=== PATIENT | male | born 1945 | race Caucasian/White ===

== ENCOUNTER 2016-06-20 20:15 | Emergency (ER) | payer OTHER ==
--- NOTE | 2016-06-20 20:23 | EDPHY ---
H & P HPI/ROS: HPI CHIEF COMPLAINT: Sore throat, right ear pain, chills, muscle aches, sinus congestion HISTORY OF PRESENT ILLNESS: This patient very pleasant 62-year-old male, significant past medical history for hypertension, hyperlipidemia, GERD, colon resection, presents to the emergency room for what he describes as flu-like illness. He tells me he has had a sore throat since Friday, right ear pain, chills, muscle aches and sinus congestion. His main complaint is sore throat. Also has a cough. Nonproductive. Denies chest pain or shortness of breath denies abdominal pain. Denies urinary symptoms. Patient tells me that he flew to visit his daughter here he is with his from [place] to live [address] [facility]. He tells me that he flew here on Friday. On the flight here he developed sore throat. Symptoms have continued. No recorded temperature at home but does feel chilled at times. Past Medical History: Hypertension, hyperlipidemia, GERD, colonic mass Past Surgical History: Colonic mass removal or colon resection Social History: Denies daily use of drugs alcohol tobacco products, lives in the [place], Family History: Noncontributory ROS REVIEW OF SYSTEMS: A comprehensive 10 point review of systems is otherwise negative aside from elements mentioned in the history of present illness. Exam Constitutional appears well nontoxic triage nursing summary reviewed, vital signs reviewed, awake/alert. Eyes normal conjunctivae and sclera, EOMI, PERRLA. HENT bilateral TM slight erythema to bilateral TMs no significant disc bulge or no significant fluid collection, nasal turbinates unremarkable, posterior oropharynx shows slight pink erythema no exudate or significant swelling, uvula midline, no signs of Micky's, no lymphadenopathy, normal inspection, atraumatic , moist mucus membranes, no epistaxis, neck supple/ no meningismus, no raccoon eyes. Patient does have tenderness palpation over the anterior frontal sinus. Congestion. Respiratory dry cough, otherwise clear to auscultation bilaterally, normal breath sounds, no respiratory distress, no wheezing. Cardiovascular rate normal, regular rhythm, no murmur, no edema, distal pulses normal. Gastrointestinal soft, non-tender, no rebound, no guarding, normal bowel sounds, no distension, no pulsatile mass. Genitourinary no CVA tenderness. Musculoskeletal no midline vertebral tenderness, full range of motion, no calf swelling, no tenderness of extremities, no meningismus, good pulses, neurovascularly intact. Skin pink, warm, & dry, no rash, skin atraumatic. Neurologic no meningeal signs, no stiff neck, awake, alert and oriented x 3, AAOx3, moves all 4 extremities equally, motor intact, sensory intact, CN II-XII intact, normal cerebellar, normal vision, normal speech. Psychiatric normal mood/affect. Heme/Lymph/Immune no lymphadenopathy. Differential Diagnosis: Includes but is not limited to it viral syndrome, sinusitis, otitis media, strep pharyngitis, viral pharyngitis, influenza, viral pneumonia, bacterial pneumonia Medical Decision Making: Plan for this patient two view chest x-ray to rule out pneumonia, influenza and strep. Of note this patient appears well here nontoxic no acute distress afebrile. Noted to be hypertensive when he arrived. Also possible given the erythema bilateral TMs and erythema of throat viral process or sinusitis. Re-evaluation: ED x-ray chest two view: Source: Patient Constitutional: Initial Vital Signs Temperature (C) 37.0 C 06/20/16 20:26 Heart Rate 69 06/20/16 20:26 Respiratory Rate 16 06/20/16 20:26 Blood Pressure 165/98 H 06/20/16 20:26 O2 Sat (%) 95 06/20/16 20:26 O2 Delivery Mode Room Air Allergies/Adverse Reactions: Penicillins Allergy (Verified 06/20/16 20:24) Home Medications: Medication Instructions Recorded AZITHROMYCIN [Z-PACK] 250 mg PO DAILY #6 tab 06/20/16 Lipitor 06/20/16 Lisinopril 06/20/16 Metoprolol Succinate Xr [Toprol Xl 06/20/16 100 mg (*)] Omeprazole 06/20/16 Medical Decision Making - Data Points Laboratory Results: 06/20/16 06/20/16 06/20/16 Unknown 20:40 20:34 Influenza A,B Rapid NEGATIVE FOR FLU (NEGATIVE) Group A Strep Screen NEGATIVE (NEGATIVE) Group A Strep DNA Pending Departure - Departure Disposition: Home, Routine, Self-Care Clinical Impression: Viral syndrome Sinusitis Qualifiers: Sinusitis location: frontal Chronicity: acute Recurrence: non-recurrent Qualified Code(s): J01.10 - Acute frontal sinusitis, unspecified Condition: Good Instructions: Viral Syndrome (ED), Sinusitis (ED) Additional Instructions: 1. Drink lots of fluids stay well-hydrated. 2. Return emergency room if worsening symptoms includes high fever, vomiting or questions or concerns. Referrals: NONE *PRIMARY CARE P,. [Primary Care Provider] - As per Instructions Prescriptions: AZITHROMYCIN [Z-PACK] 250 mg PO DAILY #6 tab
[2016-06-20 20:29] VITALS: PULSE 69; RESP 16; TEMP 98.6; O2SAT 95
[2016-06-20 21:13] VITALS: BP 144/79
[2016-06-20] MEDS ORDERED: AZITHROMYCIN 250 MG TAB PO ONE (21:14)
== END 2016-06-20 21:18 | disposition home or self-care (01) ==
LOC: CED 20:15
DX: B34.9 Viral infection, unspecified (principal); J01.10 Acute frontal sinusitis, unspecified; I10 Essential (primary) hypertension
CPT/HCPCS: 71020-PO; 87400-PO; 87880-PO